=== PATIENT | male | born 1975 | race Hispanic/Latino ===

== ENCOUNTER 2020-05-05 13:56 | Emergency (ER) | payer OTHER ==
[~2020-05-05] VITALS: Ht 182.9 cm; Wt 97.5 kg
[2020-05-05] MEDS ORDERED: TYLENOL # 31 EA PO (14:45)
[2020-05-05] MEDS ORDERED: ZOFRAN4 MG PO (14:45)
[2020-05-05] MEDS ORDERED: IBUPROFEN IB200 MG PO (14:45)
== END 2020-05-05 16:07 | disposition home or self-care (01) ==
LOC: FSED 14:02
DX: S22.32XA Fracture of one rib, left side, initial encounter for closed fracture (principal); V00.131A Fall from skateboard, initial encounter; Y93.51 Activity, roller skating (inline) and skateboarding; Y92.488 Other paved roadways as the place of occurrence of the external cause; N20.0 Calculus of kidney; R16.0 Hepatomegaly, not elsewhere classified; J45.909 Unspecified asthma, uncomplicated
CPT/HCPCS: 71250; 74176; 99283

== ENCOUNTER 2020-08-16 10:55 | Emergency (ER) | payer OTHER ==
[~2020-08-16] VITALS: Ht 182.9 cm; Wt 95.7 kg
[~2020-08-16 10:55] MED LIST: IBUPROFEN IB200 MG PO; TYLENOL # 31 EA PO; ZOFRAN4 MG PO
[2020-08-16] MEDS ORDERED: KETOROLAC TROMETHAMINE 60 MG/2 ML VIAL IM ONE (11:30)
[2020-08-16] MEDS ORDERED: TYLENOL # 31 EA PO (12:43)
== END 2020-08-16 13:09 | disposition home or self-care (01) ==
LOC: FSED 11:08
DX: S13.9XXA Sprain of joints and ligaments of unspecified parts of neck, initial encounter (principal); V29.3XXA Motorcycle rider (driver) (passenger) injured in unspecified nontraffic accident, initial encounter; R07.89 Other chest pain
CPT/HCPCS: 70450; 71250; 72125; 99283; J1885